=== PATIENT | male | born 1985 | race African-American/Black ===

== ENCOUNTER 2017-09-26 08:08 | Emergency (ER) | payer OTHER ==
[~2017-09-26] VITALS: Ht 172.7 cm; Wt 62.0 kg
[2017-09-26 08:44] VITALS: BP 114/72
[2017-09-26] MEDS: DEXAMETHASONE 10 MG/ML VIAL IM ONE (11:50)
== END 2017-09-26 13:07 | disposition home or self-care (01) ==
LOC: ER 08:35
DX: J03.90 Acute tonsillitis, unspecified (principal); F17.200 Nicotine dependence, unspecified, uncomplicated; Z98.890 Other specified postprocedural states
CPT/HCPCS: 96372; 99283; J1100

== ENCOUNTER 2017-09-28 15:59 | Emergency (ER) | payer OTHER ==
[~2017-09-28] VITALS: Ht 172.7 cm; Wt 59.0 kg
[2017-09-28] MEDS ORDERED: LIDOCAINE HCL 1% 20ML VIAL (Pyxis) INJ INFIL ONE (18:45)
[2017-09-28] MEDS ORDERED: TETRACAINE/BENZOCAINE/BUTAMBEN 20 GM SPRAY MM SCH (18:45)
[2017-09-28] MEDS ORDERED: DEXAMETHASONE 10 MG/ML VIAL IV ONE (18:45)
[2017-09-28] MEDS ORDERED: MORPHINE SULFATE 10 MG/ML CPJ IV ONE (18:45)
[2017-09-28] MEDS ORDERED: KETOROLAC 60MG/2ML VIAL IM ONE (18:45)
[2017-09-28] MEDS ORDERED: CLINDAMYCIN 300 MG in DEXTROSE 5% WATER 50 ML IV ONE (20:15)
[2017-09-28 21:45] VITALS: BP 112/69
== END 2017-09-28 23:10 | disposition home or self-care (01) ==
LOC: ER 17:00
DX: J36 Peritonsillar abscess (principal); F17.200 Nicotine dependence, unspecified, uncomplicated; F12.10 Cannabis abuse, uncomplicated
CPT/HCPCS: 42700; 87070; 87430; 96365; 96372; 96375; 99284; J1100; J1885; J2270; J3490; Z7610; J7060